=== PATIENT | female | born 1965 | race Hispanic/Latino ===

== ENCOUNTER 2018-11-16 11:00 | Outpatient (CLI) | payer OTHER ==
--- NOTE | 2018-11-21 11:47 | Treadmill Report ---
TREADMILL STRESS TEST. The patient exercised on Mane protocol for 8 minutes 43 seconds. The patient's baseline heart rate is 77. Baseline blood pressure 126/78. Baseline EKG, sinus rhythm with sinus APCs. The patient had no EKG changes for ischemia, went up to stage III on Mane protocol and achieved max heart rate 147, which is 86% max predicted heart rate. Peak blood pressure 149/84. The patient had no EKG changes or rhythm suggestive of ischemia. SUMMARY: 1. Negative treadmill EKG. 2. Good exercise capacity 8 minutes 43 seconds on Mane protocol. 3. No exaggerated BP response to exercise. 4. No EKG changes or arrhythmia suggestive of ischemia. JOB# [id number] BISI/JULIAN
--- NOTE | 2018-11-22 10:11 | Cat Scan Report ---
LIMITED CHEST CT SCAN FOR CALCIUM SCORING: History: Screening. A limited chest CT scan was carried out for calcium evaluation of the coronary arteries. This dictation is for the non-cardiac portion of the chest which was included. There is no hilar or mediastinal mass seen. The visualized lungs are expanded and clear. No evidence for parenchymal disease, nodule or infiltrate. No abnormality is seen in the included portion of the upper abdomen. Bilateral breast prostheses are intact. IMPRESSION: No significant abnormality in the lower chest.
--- NOTE | 2018-11-22 10:58 | Vascular Lab Report ---
PROCEDURE: VL CAROTID DUPLEX BILAT TECHNIQUE: Carotid duplex Doppler ultrasound. Grayscale, color flow and spectral waveform imaging pe rformed. HISTORY: SCREENING. History of hypertension. COMPARISON: None FINDINGS: There is mild plaque seen bilaterally proximal ICAs. There is no abnormal elevation of carotid flow velocity to indicate hemodynamically significant steno sis. Specifically findings correspond to less than 50% stenosis bilaterally. Vertebral artery flow is antegrade bilaterally. IMPRESSION: No evidence of any hemodynamically significant stenosis. This document is electronically signed by Fern Medeiros MD., November 22 2018 10:56:35 AM ET
--- NOTE | 2018-11-23 09:44 | CT Calcium Scoring Report ---
Coronary Calcium Score Date of service: 11/23/18 Procedure: High-resolution computed tomographic imaging of the chest was performed on11/16/18 with particular attention paid to the coronary arteries. Images from the examination were analyzed for the presence and extent of coronary artery calcification, using coronary calcium quantification software. The patient tolerated the procedure well and there were no complications. The results of the coronary calcification analysis are provided below. The patient scores are compared with published data related to scores for people of a similar age and the same gender. - Findings Total Agatson Score: 0 Findings: mild calcification in ascending and descending aorta.
== END 2018-11-16 11:01 | disposition home or self-care (01) ==
LOC: ECHO 11:00
PROVIDERS: ATTEND Internal Medicine
DX: Z13.6 Encounter for screening for cardiovascular disorders (principal); I10 Essential (primary) hypertension
CPT/HCPCS: 75571; 93017; 93306; 93880